=== PATIENT | male | born 1990 | race Caucasian/White ===

== ENCOUNTER 2019-03-19 17:37 | Emergency (ER) | payer OTHER ==
[~2019-03-19] VITALS: Ht 166.4 cm; Wt 91.6 kg
--- NOTE | 2019-03-19 17:45 | NUR ---
PT TO ER BED 7
[2019-03-19 17:49] VITALS: BP 167/98
--- NOTE | 2019-03-19 17:50 | NUR ---
28 Y MALE WITH SON C/O DIZZINESS AND BILATERAL ARM NUMBESS X 3 DAYS. DENIES BLURRY VISION. STATES THERE IS PAIN 5/10 IN R FINGERS. VSS AT THIS TIME. AA0X4. NEURO INTACT- EQUAL ARM PIPING BLOCKER/SYMMETRY. EQUAL FACIAL SYMMETRY. MARIO, REACTIVE TO LIGHT. GCS 15. AA0X4. BED IS DOWN, LOCKED, BED RAIL X 1, ERMD TO SEE PT. PMH-NONE
--- NOTE | 2019-03-19 18:38 | NUR ---
URINE SAMPLE COLLECTED
--- NOTE | 2019-03-19 19:07 | NUR ---
REPORT GIVEN TO STEPHEN LEO, TRANSFER OF CARE
--- NOTE | 2019-03-19 19:10 | NUR ---
PT LAYING IN BED, RR EVEN AND UNLABORED. FAMILY AT BEDSIDE. VSS. PT REPORTS INTERMITTENT SLIGHT DIZZINESS. PT REPORTS R 3RD AND 4TH FINGERTIP "TIREDNESS" DENIES ANY TRAUMA/INJURY. REPORTS MILD HEADACHE. ALL NEEDS MET AT THIS TIME.
--- NOTE | 2019-03-19 19:21 | NUR ---
DR. KRISHNAN BEDSIDE EVALUATING PT
--- NOTE | 2019-03-19 19:45 | NUR ---
DR KRISHNAN MADE AWARE OF EKG, NO NEED FOR CARDIAC ENZYMES PER ER MD. PT DENIES CP, SOB, N/V. VSS. OK FOR DISCHARGE
[2019-03-19 19:54] VITALS: BP 130/98
--- NOTE | 2019-03-19 19:54 | NUR ---
Patient discharged with v/s stable. Written and verbal after care instructions given and explained. Patient alert, oriented and verbalized understanding of instructions. Ambulatory with steady gait. All questions addressed prior to discharge. ID band removed. Patient advised to follow up with PMD. Rx of ATARAX, MOTRIN given. Patient educated on indication of medication including possible reaction and side effects. Opportunity to ask questions provided and answered.
== END 2019-03-19 19:54 | disposition home or self-care (01) ==
LOC: MED 17:37
DX: F41.9 Anxiety disorder, unspecified (principal); R51 Headache
CPT/HCPCS: 81002; 93005; 99283

== ENCOUNTER 2021-07-25 10:56 | Emergency (ER) | payer OTHER ==
[~2021-07-25] VITALS: Ht 167.6 cm; Wt 90.7 kg
[2021-07-25 10:59] VITALS: BP 150/98
[2021-07-25] MEDS ORDERED: OFLO5SOL27 OT (11:33)
[2021-07-25] MEDS ORDERED: FLONAS NS (11:34)
--- NOTE | 2021-07-25 11:46 | NUR ---
PT SEEN AND D/C BY DEMARCUS MOYER, NO NURSING INTERVENTIONS PROVIDED
--- NOTE | 2021-07-25 11:47 | NUR ---
Patient discharged with v/s stable. Written and verbal after care instructions ABOUT EUSTACHIAN TUBE DYSFUNCTION given and explained. Patient alert, oriented and verbalized understanding of instructions. Ambulatory with steady gait. All questions addressed prior to discharge. ID band removed. Patient advised to follow up with PMD. Rx of FLONASE NASAL AND FLOXIN OT given. Patient educated on indication of medication including possible reaction and side effects. Opportunity to ask questions provided and answered.
== END 2021-07-25 11:47 | disposition home or self-care (01) ==
LOC: MED 10:56
DX: H92.01 Otalgia, right ear (principal); H69.81 Other specified disorders of Eustachian tube, right ear; Z79.899 Other long term (current) drug therapy
CPT/HCPCS: 99283

== ENCOUNTER 2022-04-27 15:34 | Emergency (ER) | payer OTHER ==
[~2022-04-27] VITALS: Ht 167.6 cm; Wt 89.8 kg
[~2022-04-27 15:34] MED LIST: FLONAS NS; OFLO5SOL27 OT
[2022-04-27 15:59] VITALS: BP 175/111
[2022-04-27 16:43] LABS: BASOPHILS # (AUTO) 0.1 K/uL (0.00-0.22); BASOPHILS % (AUTO) 0.5 % (0.0-2.0); EOSINOPHILS % (AUTO) 0.2 % (0.0-4.0); HEMATOCRIT 42.2 % (36-52); HEMOGLOBIN 14.5 g/dL (12.0-18.0); LYMPHOCYTES # (AUTO) 2.8 K/uL (2.0-11.5); LYMPHOCYTES % (AUTO) 24.9 % (20.5-51.1); MEAN CORPUSCULAR HEMOGLOBIN 29 pg (27-31); MEAN CORPUSCULAR HGB CONC 34 g/dL (33-37); MEAN CORPUSCULAR VOLUME 85.6 fL (80-94); MONOCYTES # (AUTO) 0.8 K/uL (0.8-1.0); MONOCYTES % (AUTO) 7.2 % (1.7-9.3); NEUTROPHILS # (AUTO) 7.6 K/uL (1.8-7.7); NEUTROPHILS % (AUTO) 67.2 % (42.2-75.2); PLATELET COUNT (AUTO) 262 K/uL (140-450); RED BLOOD CELL COUNT(AUTO) 4.93 MIL/uL (4.20-6.10); RED CELL DISTRIBUTION WIDTH 13.8 % (11.6-13.7); WHITE BLOOD COUNT (AUTO) 11.3 K/uL (4.8-10.8)
[2022-04-27 17:03] LABS: ALBUMIN 4.5 g/dL (3.4-5.0); CARBON DIOXIDE 30.8 mmol/L (21-32); CREATININE 0.8 mg/dL (0.6-1.3); POTASSIUM 3.8 mmol/L (3.5-5.1); TOTAL BILIRUBIN 1.2 mg/dL (0.0-1.0)
[2022-04-27 17:24] LABS: APPEARANCE,URINE CLEAR (CLEAR); BILIRUBIN,URINE NEGATIVE (NEGATIVE); BLOOD, URINE TRACE-I (NEGATIVE); COLOR,URINE YELLOW (YELLOW); LEUKOCYTE ESTERASE ,URINE NEGATIVE (NEGATIVE); NITRITE, URINE NEGATIVE (NEGATIVE); UGLUCOSE NEGATIVE (NEGATIVE)
[2022-04-27 17:32] LABS: RBC,URINE 0-5 /HPF (0-5); WBC,URINE NONE SEEN /HPF (0-5)
--- NOTE | 2022-04-27 20:11 | NUR ---
Dr. Ennis explained results and treatment plans.
[2022-04-27] MEDS ORDERED: KETOROLAC 60 MG/2 ML VIAL IM ONE (20:15)
[2022-04-27] MEDS ORDERED: IBUP-2213 PO (20:24)
[2022-04-27 20:59] VITALS: BP 148/96
--- NOTE | 2022-04-27 20:59 | NUR ---
Patient discharged with v/s stable. Written and verbal after care instructions given and explained for Flank pain. Patient alert, oriented and verbalized understanding of instructions. Ambulatory with steady gait. All questions addressed prior to discharge. ID band removed. Patient advised to follow up with PMD. Rx of Ibuprofen given. Patient educated on indication of medication including possible reaction and side effects. Opportunity to ask questions provided and answered.
== END 2022-04-27 20:59 | disposition home or self-care (01) ==
LOC: MED 15:34
DX: R10.9 Unspecified abdominal pain (principal); Z79.899 Other long term (current) drug therapy
CPT/HCPCS: 36415; 74176; 80053; 81001; 83690; 85025; 96372; 99284; J1885

== ENCOUNTER 2023-04-27 21:51 | Emergency (ER) | payer OTHER ==
[~2023-04-27] VITALS: Ht 167.6 cm; Wt 95.3 kg
[~2023-04-27 21:51] MED LIST changes: +IBUP-2213 PO
[2023-04-27 22:00] VITALS: BP 158/120; PULSE 89; RESP 17; TEMP 98; O2SAT 98
--- NOTE | 2023-04-27 22:00 | NUR ---
TO BED AMBULATORY
[2023-04-27] MEDS ORDERED: ENALAPRILAT 2.5 MG/2 ML VIAL IVP ONE (22:10)
[2023-04-27 22:37] LABS: BASOPHILS % (AUTO) 0.5 % (0.0-2.0); EOSINOPHILS # (AUTO) 0.1 K/uL (0-0.4); EOSINOPHILS % (AUTO) 0.6 % (0.0-4.0); HEMATOCRIT 40.9 % (36-52); HEMOGLOBIN 14.2 g/dL (12.0-18.0); LYMPHOCYTES # (AUTO) 4.1 K/uL (2.0-11.5); MEAN CORPUSCULAR HEMOGLOBIN 29 pg (27-31); MEAN CORPUSCULAR HGB CONC 35 g/dL (33-37); MEAN CORPUSCULAR VOLUME 82.6 fL (80-94); MONOCYTES % (AUTO) 9.9 % (1.7-9.3); NEUTROPHILS # (AUTO) 5.2 K/uL (1.8-7.7); PLATELET COUNT (AUTO) 263 K/uL (140-450); RED BLOOD CELL COUNT(AUTO) 4.94 MIL/uL (4.20-6.10); RED CELL DISTRIBUTION WIDTH 14.1 % (11.6-13.7); WHITE BLOOD COUNT (AUTO) 10.4 K/uL (4.8-10.8)
[2023-04-27 22:55] LABS: ALBUMIN 4.1 g/dL (3.4-5.0); ANION GAP 12.1 (8-16); CARBON DIOXIDE 29.4 mmol/L (21-32); CREATININE 0.8 mg/dL (0.6-1.3); POTASSIUM 3.5 mmol/L (3.5-5.1); TOTAL BILIRUBIN 1.2 mg/dL (0.0-1.0)
[2023-04-27] MEDS ORDERED: LISI20TA29 PO (23:13)
[2023-04-27 23:24] VITALS: BP 158/92; PULSE 94; RESP 16; TEMP 98; O2SAT 98
--- NOTE | 2023-04-27 23:24 | NUR ---
Patient discharged with v/s stable. Written and verbal after care instructions given and explained. Patient alert, oriented and verbalized understanding of instructions. Ambulatory with steady gait. All questions addressed prior to discharge. ID band removed. Patient advised to follow up with PMD. Rx of LISINOPRIL given. Patient educated on indication of medication including possible reaction and side effects. Opportunity to ask questions provided and answered.
== END 2023-04-27 23:24 | disposition home or self-care (01) ==
LOC: MED 21:51
DX: I10 Essential (primary) hypertension (principal)
CPT/HCPCS: 36415; 71045; 80053; 83880; 84484; 85025; 85379; 93005; 96374; 99285; J3490